=== PATIENT | female | born 1965 | race Caucasian/White ===

== ENCOUNTER → 2016-10-10 | Outpatient (CLI) | payer OTHER ==
[~2016-10-10] MED LIST: IBUP800T23 PO; LORT5TAB PO
--- NOTE | 2016-10-14 09:05 | RSPPFT ---
DATE OF PROCEDURE: 10/10/16 COMMENTS: Spirometry shows FVC of 3.2 at 115% of predicted, FEV1 of 2.3 at 110%, FEV1/FVC ratio is normal. Flow is decreased at FEF 25, FEF 50, FEF 75 and FEF 25-75. There is a mild response after bronchodilator treatment. Lung volumes show residual volume is increased. TLC is increased. Diffusion capacity is increased. Flow volume loop indicates a normal pattern. IMPRESSION: 1. Mild small airways obstructive lung disease. 2. Good response after bronchodilator treatment. 3. Lung volumes show hyperinflation. 4. Diffusion capacity is decreased.
== END ==
LOC: HRSP 10:08
PROVIDERS: ATTEND Internal Medicine Pulmonary Disease
DX: J44.9 Chronic obstructive pulmonary disease, unspecified (principal)
CPT/HCPCS: 94060; 94726; 94729

== ENCOUNTER → 2016-12-29 | Day surgery (SDC) | payer OTHER ==
[~2016-12-29] MED LIST changes: +ACETAMINOPHEN/HYDROcodone 325 MG/5 MG TAB ONE; +BUPIVACAINE/EPINEPHRINE 0.5% PF 30 ML VIAL ONE; +KETOROLAC TROMETHAMINE 30 MG/ML (IVP) VIAL IV PUSH ONE; +LACTATED RINGER'S 1000 ML INJ 1,000 ML ONE; +MIDAZOLAM HCL 2 MG/2 ML VIAL ONE; +ONDANSETRON HCL 4 MG/2 ML VIAL IV PUSH ONE; +PROPOFOL 200 MG/20 ML AMP IV ONE; +ceFAZolin INJ 1,000 MG VIAL ONE
--- NOTE | 2016-12-30 12:26 | MP ---
cc: CRISTY LORENZO M.D. DATE OF SURGERY: 12/27/2016 PREOPERATIVE DIAGNOSIS: Right knee lateral meniscus tear and lateral compartment chondromalacia. POSTOPERATIVE DIAGNOSIS: Right knee lateral meniscus tear and lateral compartment chondromalacia. PROCEDURE: Right knee arthroscopic partial lateral meniscectomy including chondroplasty lateral femoral condyle. ANESTHETIC: General SURGEON Cristy Lorenzo MD ESTIMATED BLOOD LOSS Minimal. SPECIMEN: fragments discarded. COMPLICATIONS None known. INDICATION Came with ours 51-year-old female with complex tear of the lateral meniscus with valgus alignment of the knee and lateral compartment arthritis. She presents for arthroscopic surgery. A detailed informed consent was obtained. PROCEDURE The patient brought the operating room. She was placed under general anesthetic. The right lower extremity draped in the usual sterile fashion. IV antibiotics were given. Time-out was completed. Marcaine injected inferolateral portal, cannula was introduced, blunt trocar used to introduce the cannula. The knee insufflated with saline. Patellofemoral joint showed some mild chondromalacia. ACL shows normal ACL fibers. The medial compartment showed normal-appearing articular surface and meniscus although there was a small spur on medial edge of medial femoral condyle, lateral compartment showed unstable tear involving the body of the lateral meniscus and unstable chondromalacia on the weightbearing portion lateral femoral condyle. We proceeded with arthroscopic partial lateral meniscectomy using combination of arthroscopic biters and shaver and smoothed and contoured the articular surface for the unstable dealinated chondromalacia was present. We switched over the switching stick and came in from the other angle to smooth and fine-tune as there was some involvement of the posterior horn as well. After we completed this we took a follow up photograph from this angle and switched back to the scope in the lateral portal and fine-tuned it smooth once again and then did a repeat diagnostic arthroscopy to confirmedm, no loose bodies, arthroscopic equipment was removed. Marcaine had been injected on the portals. Steri-Strips applied. Sterile dressing applied. The patient was awoken return to the recovery room in stable condition. MD TANIA Sharp/destiny /11:45 AM /12:21 PM
== END | disposition home or self-care (01) ==
LOC: ESDC 09:04
PROVIDERS: ATTEND Orthopaedic Surgery Sports Medicine
DX: S83.271A Complex tear of lateral meniscus, current injury, right knee, initial encounter (principal); M94.261 Chondromalacia, right knee
CPT/HCPCS: 01400; 29881; J0690; J1885; J2250; J2405; J3010; J7120